=== PATIENT | male | born 1950 | race African-American/Black ===

== ENCOUNTER 2017-01-11 18:23 | Emergency (ER) | payer OTHER, MEDICARE ==
[~2017-01-11] VITALS: Ht 188 cm; Wt 102.5 kg
[2017-01-11] MEDS ORDERED: VIAGRA100 M1 PO (21:34)
[2017-01-11] MEDS ORDERED: ATENOLOL25 M1 PO (21:34)
[2017-01-11] MEDS ORDERED: NAPROXEN500 M2 PO (21:34)
[2017-01-11 21:37] VITALS: BP 158/74
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
[2017-01-11] MEDS ORDERED: ULTRAM50 M1 PO (23:20)
[2017-01-11] MEDS ORDERED: BACLOFEN10 M1 PO (23:20)
[2017-01-11] MEDS ORDERED: IBUPROFEN600 M1 PO (23:20)
== END 2017-01-11 23:32 ==
LOC: ERH 18:23
DX: S16.1XXA Strain of muscle, fascia and tendon at neck level, initial encounter (principal); S39.012A Strain of muscle, fascia and tendon of lower back, initial encounter; V49.40XA Driver injured in collision with unspecified motor vehicles in traffic accident, initial encounter; Y92.9 Unspecified place or not applicable
CPT/HCPCS: 81001